=== PATIENT | female | born 1940 | race Caucasian/White ===

== ENCOUNTER 2016-10-14 23:21 | Observation (INO) | payer MEDICARE, OTHER ==
[~2016-10-14] VITALS: Ht 157.5 cm; Wt 52.7 kg
[~2016-10-14 23:21] MED LIST: ATEN50TA PO; FLUOXETINE; HYZAAR; LEVO50TA74 PO; LORA-444 PO; LORA0.5T PO; LOSA1TAB19 PO; METF1000 PO; PRILOSEC; ROSU20TA PO; SITA100T8 PO; TRAM-40 PO; ZOLP10TA5 PO
[2016-10-14] MEDS ORDERED: BELLADONNA/PHENOBARBITAL TAB PO STA (23:37)
[2016-10-14] MEDS ORDERED: SOD CHLORIDE 0.9% 1,000 ML IV STA (23:37)
[2016-10-14] MEDS ORDERED: ONDANSETRON 4 MG INJ IV STA (23:37)
[2016-10-14] MEDS ORDERED: LIDOCAINE/MYLANTA 40 ML BTL PO STA (23:37)
--- NOTE | 2016-10-14 23:41 | ERA ---
ER Documentation Chief Complaint Date/Time DATE: 10/14/16 TIME: 23:30 Chief Complaint mid scales non-radiating sharp 6/10 chest pain 20min prior to RA HPI 75-year-old woman presents with dull chest pain 1 day and an episode of vomiting while sitting on the couch today at home. Patient states chest discomfort lasted for about 30 minutes and improved with aspirin and nitroglycerin administered by EMS. She denies shortness of breath, denies chest pain at this time, no cough, no fevers or chills, no diarrhea. Patient denies abdominal pain. Patient was transported here by EMS without further complications. ROS All systems reviewed and are negative except as per history of present illness. Medications Home Meds Reported Medications Losartan-Hydrochlorothiazide (Losartan-HCTZ) 50-12.5 Mg Tab, 1 TAB PO DAILY, TAB 11/17/15 Rosuvastatin Calcium* (Crestor*) 20 Mg Tablet, 20 MG PO QHS, #30 TAB 11/17/15 Sitagliptin* (Januvia*) 100 Mg Tablet, 100 MG PO DAILY, #30 TAB 11/17/15 Metformin Hcl* (Metformin Hcl*) 1,000 Mg Tablet, 1000 MG PO WITH BREAKFAST DINNE , #60 TAB 11/17/15 Lorazepam* (Ativan*) 2 Mg Tablet, 2 MG PO HS Y for ANXIETY, #30 TAB 11/17/15 Levothyroxine Sodium* (Levothyroxine Sodium*) 50 Mcg Tablet, 50 MCG PO BEFORE BREAKFAST, #30 TAB 11/17/15 Tramadol Hcl* (Ultram*) 50 Mg Tablet, 50 MG PO DAILY Y for PAIN, TAB 11/17/15 Atenolol* (Atenolol*) 50 Mg Tablet, 25 MG PO DAILY, #30 TAB 11/17/15 Zolpidem Tartrate* (Zolpidem Tartrate*) 10 Mg Tablet, 10 MG PO QHS Y for INSOMNIA, #30 TAB 11/17/15 Allergies Allergies: Coded Allergies: ibuprofen (Verified Adverse Reaction, Unknown, "SHE GETS CRAZY", 11/17/15) PMhx/Soc diabetes mellitus, hypertension, anxiety, insomnia, dyslipidemia, hypothyroidism and history of meningioma History of Surgery: Yes (Right hip replacement, appendectomy) Anesthesia Reaction: No Hx Neurological Disorder: Yes (Syncope, possible seizures) Hx Respiratory Disorders: Yes (chronic cough) Hx Cardiac Disorders: Yes (HTN, Tachycardia) Hx Psychiatric Problems: Yes (Depression, anxiety, ) Hx Miscellaneous Medical Probl: Yes (High cholesterol) Hx Alcohol Use: No Hx Substance Use: No Hx Tobacco Use: No Physical Exam Vitals Vital Signs Date Time Temp Pulse Resp B/P Pulse Ox O2 Delivery O2 Flow Rate FiO2 10/14/16 23:35 65 11 97/56 94 Nasal Cannula 2.0 10/14/16 23:28 97.8 77 20 97/50 97 Physical Exam GENERAL: Well-developed, well-nourished, well-hydrated, in no apparent distress , looks nontoxic in appearance, afebrile HEENT: Moist mucous membranes, pink conjunctiva, no cervical spine tenderness or step-off deformities, no goiter, no jaundice or icterus, extraocular movements intact without pain. No submandibular induration, and no pharyngeal erythema NEURO: Alert and oriented 3, cranial nerves II through XII intact bilaterally, pupils equal round reactive to light, no focal deficits or facial asymmetry, sensation intact distally Strength 5/5 in upper and lower extremities bilaterally CARDIAC: Regular rate and rhythm, no murmurs rubs or gallops LUNGS: Clear bilaterally no wheezing crackles or stridor ABDOMEN: Soft nontender, no guarding, no rigidity, no rebound, no psoas sign no obturator sign. Normoactive bowel sounds SKIN: Warm and dry to touch, no abrasions, contusions, or hematomas, no lacerations, no ecchymosis, no target lesions, and without ulcers EXTREMITIES: No clubbing cyanosis or edema, calves are bilaterally symmetrical, no Homans sign, no popliteal cord sign. Distal pulses equal and bilateral PSYCH: Normal affect without agitation or irritability Result Diagram: 10/14/16 0000 10/14/16 0000 Results 24 hrs Laboratory Tests Test 10/14/16 00:00 10/15/16 00:30 White Blood Count 5.710^3/ul Red Blood Count 3.7010^6/ul Hemoglobin 10.9g/dl Hematocrit 33.5% Mean Corpuscular Volume 90.5fl Mean Corpuscular Hemoglobin 29.5pg Mean Corpuscular Hemoglobin Concent 32.5g/dl Red Cell Distribution Width 13.0% Platelet Count 58021^3/UL Mean Platelet Volume 10.2fl Neutrophils % 29.0% Lymphocytes % 62.1% Monocytes % 8.4% Eosinophils % 0.0% Basophils % 0.3% Nucleated Red Blood Cells % 0.0/100WBC Neutrophils # (Manual) 210^3/ul Lymphocytes # 3.610^3/ul Monocytes # 0.510^3/ul Eosinophils # 0.010^3/ul Basophils # 0.010^3/ul Nucleated Red Blood Cells # 0.010^3/ul Sodium Level 137mmol/L Potassium Level 3.9mmol/L Chloride Level 95mmol/L Carbon Dioxide Level 27mmol/L Anion Gap 19 Blood Urea Nitrogen 14mg/dl Creatinine 0.76mg/dl Glucose Level 102mg/dl Calcium Level 9.3mg/dl Total Bilirubin 0.0mg/dl Direct Bilirubin 0.00mg/dl Indirect Bilirubin 0.0mg/dl Aspartate Amino Transf (AST/SGOT) 25IU/L Alanine Aminotransferase (ALT/SGPT) 29IU/L Alkaline Phosphatase 55IU/L Troponin I < 0.012ng/ml Total Protein 6.5g/dl Albumin 4.2g/dl Globulin 2.30g/dl Albumin/Globulin Ratio 1.82 Lipase 77U/L Urine Color YELLOW Urine Clarity CLEAR Urine pH 6.0 Urine Specific [place] 1.013 Urine Ketones NEGATIVEmg/dL Urine Nitrite NEGATIVEmg/dL Urine Bilirubin NEGATIVEmg/dL Urine Urobilinogen NEGATIVEmg/dL Urine Leukocyte Esterase NEGATIVELeu/ul Urine Microscopic RBC 2/HPF Urine Microscopic WBC 1/HPF Urine Hemoglobin NEGATIVEmg/dL Urine Glucose NEGATIVEmg/dL Urine Total Protein 1+mg/dl Current Medications Medications (Trade) Dose Ordered Sig/[place] Route PRN Reason Start Time Stop Time Status Last Admin Dose Admin Sodium Chloride (NS) 1,000 ml @ 1,000 mls/hr Q1H STAT IV 10/14/16 23:37 10/15/16 00:36 DC 10/15/16 00:16 Ondansetron HCl (Zofran Inj) 4 mg ONCE STAT IV 10/14/16 23:37 10/14/16 23:38 DC 10/15/16 00:15 Miscellaneous Medication (Gi Cocktail (2)) 40 ml ONCE STAT PO 10/14/16 23:37 10/14/16 23:39 DC 10/15/16 00:15 Belladonna/ Phenobarbital () 2 tab ONCE STAT PO 10/14/16 23:37 10/14/16 23:39 DC 10/15/16 00:15 Procedures/MDM IV line was established patient was placed on quality assurance monitor final rhythm strip revealed a sinus rhythm at about 80 bpm with upright P and T waves. Patient was afebrile. EKG performed, read by me: 63 bpm, normal sinus rhythm, normal axis, inferolateral T-wave inversions, narrow QRS complex, with good R-wave progression in precordial leads. One AP view of the chest performed, read by me reveals no acute infiltrates, normal mediastinum, sharp costophrenic and cardiac borders, no air under the diaphragm. Otherwise unremarkable chest x-ray. CBC and electrolytes are normal, liver function tests are normal, troponin was negative. I administered 1 L normal saline intravenously, Zofran 4 mg IV, GI cocktail 50 cc p.o. Patient already received aspirin and nitroglycerin. Patient will be admitted to telemetry setting for continued medical management cardiology consultation. Departure Diagnosis: Primary Impression: Chest pain Qualified Code: R07.9 - Chest pain, unspecified type Condition: MAG Justice MD Oct 14, 2016 23:31
[2016-10-15] VITALS (11 sets, daily range): BP systolic 96–111; BP diastolic 49–56; PULSE 51–60; RESP 16–20; Ht 157.5 cm; Wt 52.7 kg
--- NOTE | 2016-10-15 00:38 | RADRPT ---
PROCEDURE: XR Chest. CLINICAL INDICATION: Abdominal pain TECHNIQUE: AP Portable chest. COMPARISON: 11/16/2015 FINDINGS: There is mild cardiomegaly. The lungs are clear. The osseous structures are unremarkable. There is no free air under the diaphragm, assuming this is an upright view. IMPRESSION: No acute findings. RPTAT: HIKT .Eddie Hayward MD, MD Date Time Electronically viewed and signed by .Eddie Hayward MD, MD on 10/15/2016 00:37 .T/
[2016-10-15 00:53] LABS: ALANINE AMINOTRANSFERASE 29 IU/L (13-69); ALBUMIN 4.2 g/dl (3.3-4.9); ALBUMIN/GLOBULIN RATIO 1.82; ALKALINE PHOSPHATASE 55 IU/L (42-121); ANION GAP 19 (8-16); ASPARTATE AMINO TRANSFERASE 25 IU/L (15-46); BLOOD UREA NITROGEN 14 mg/dl (7-20); CALCIUM 9.3 mg/dl (8.4-10.2); CARBON DIOXIDE 27 mmol/L (21-31); CHLORIDE 95 mmol/L (97-110); CREATININE 0.76 mg/dl (0.44-1.00); GLUCOSE 102 mg/dl (70-220); POTASSIUM 3.9 mmol/L (3.5-5.1); SODIUM 137 mmol/L (135-144); TOTAL PROTEIN 6.5 g/dl (6.1-8.1)
[2016-10-15 00:54] LABS: BASOPHILS % 0.3 % (0.0-2.0); HEMATOCRIT 33.5 % (37.0-47.0); HEMOGLOBIN 10.9 g/dl (12.0-16.0); LYMPHOCYTES # 3.6 10^3/ul (0.8-2.9); LYMPHOCYTES % 62.1 % (15.0-51.0); MEAN CORPUSCULAR HEMOGLOBIN 29.5 pg (29.0-33.0); MEAN CORPUSCULAR HGB CONC 32.5 g/dl (32.0-37.0); MEAN CORPUSCULAR VOLUME 90.5 fl (82.0-101.0); MEAN PLATELET VOLUME 10.2 fl (7.4-10.4); MONOCYTE # 0.5 10^3/ul (0.3-0.9); MONOCYTES % 8.4 % (0.0-11.0); PLATELET COUNT 242 10^3/UL (140-415); WHITE BLOOD COUNT 5.7 10^3/ul (4.8-10.8)
[2016-10-15 01:03] LABS: TROPONIN-I < 0.012 ng/ml (0.00-0.12)
[2016-10-15 01:45] LABS: ADD UMIC YES; UR ASCORBIC ACID NEGATIVE (NEGATIVE); UR BILIRUBIN (Dip) NEGATIVE (NEGATIVE); UR BLOOD (Dip) NEGATIVE (NEGATIVE); UR CLARITY CLEAR (CLEAR); UR COLOR YELLOW (YELLOW); UR GLUCOSE (Dip) NEGATIVE (NEGATIVE); UR KETONES (Dip) NEGATIVE (NEGATIVE); UR LEUKOCYTE ESTERASE (Dip) NEGATIVE Leu/ul (NEGATIVE); UR NITRITE (Dip) NEGATIVE (NEGATIVE); UR RBC 2 /HPF (0-5); UR SPECIFIC GRAVITY (Dip) 1.013 (1.003-1.030); UR TOTAL PROTEIN (Dip) 1+ mg/dl (NEGATIVE); UR UROBILINOGEN (Dip) NEGATIVE (NEGATIVE)
[2016-10-15] MEDS ORDERED: LORAZEPAM 2 MG INJ IM ONE (04:27)
[2016-10-15] MEDS ORDERED: ONDANSETRON 4 MG INJ IV PRN (04:30)
[2016-10-15] MEDS ORDERED: NITROGLYCERIN (SL) 0.4 MG TAB SL PRN (04:30)
[2016-10-15] MEDS ORDERED: NACL 0.9% 3 ML SYG IV SCH (04:30)
[2016-10-15] MEDS ORDERED: morphine 2 MG INJ IV PRN (04:30)
[2016-10-15] MEDS ORDERED: ACETAMINOPHEN 325 MG TAB PO PRN (04:30)
[2016-10-15] MEDS ORDERED: LORAZEPAM 0.5 MG TAB PO PRN (04:30)
[2016-10-15] MEDS ORDERED: ALBUTEROL/IPRATROPIUM (NEB) 3 ML AMP HHN PRN (04:30)
[2016-10-15] MEDS ORDERED: LORAZEPAM 2 MG INJ IV ONE (04:35)
[2016-10-15] MEDS ORDERED: GLUCOSE GEL 15 GRAM TUBE BUCCAL PRN (05:00)
[2016-10-15] MEDS ORDERED: DEXTROSE 50% 50 ML SYRINGE IV PRN ×2 (05:00)
[2016-10-15] MEDS ORDERED: GLUCOSE GEL 15 GRAM TUBE PO PRN ×2 (05:00)
[2016-10-15] MEDS ORDERED: GLUCAGON 1 MG INJ IM PRN (05:00)
[2016-10-15] MEDS: ZOLPIDEM 5 MG TAB PO PRN ×4 (05:04→22:21)
--- NOTE | 2016-10-15 07:11 | HP ---
Date/Time of Note Date/Time of Note DATE: 10/15/16 TIME: 07:04 Assessment/Plan VTE Prophylaxis VTE Prophylaxis Intervention: heparin Assessment/Plan Assessment/Plan 1. Chest pain and lightheadedness: Rule out ACS -Continue telemetry monitoring -Trend troponin -2D echo and cardiology consult -Supplemental oxygen, aspirin, beta-chris, as needed nitro and morphine 2. Diabetes -Check A1c -Insulin while in-house 3. Hypothyroidism -Check TSH -Continue Synthroid 4. History of dyslipidemia -Continue home med 5. History of anxiety -Patient currently looks comfortable and denied feeling anxious -Continue home meds HPI/ROS Admit Date/Time Admit Date/Time Oct 15, 2016 at 01:17 Hx of Present Illness This is a 75-year-old female with a history of diabetes, hypertension, dyslipidemia, anxiety, hypothyroidism and meningioma who presented to the emergency department complaining of chest pain and lightheadedness. ER notes also states that patient was complaining of vomiting but she denied. His first with chest pain is concerned, it is located in the mid chest with no radiation, associated with lightheadedness and occurred while she was sitting. Chest pain almost relieved with sublingual nitro given by EMS. Currently she is chest pain -free and only complaining of mild lightheadedness. She denied shortness of breath, nausea, vomiting, palpitation, abdominal pain, headache or urinary symptoms. She has a history of anxiety but she denies feeling anxious or being under stress lately. When she presented to the ER, vitals were stable. Initial heart rate was 77 but later on been in the 50s for the most part. Labs shows hemoglobin of 10.9 otherwise rest of basic labs were within acceptable range. Chest x-ray with no acute findings. . PMH/Family/Social Past Medical History Medical History: diabetes, high cholesterol, hypertension, hypothyroid, other ( Anxiety) Social History Alcohol Use: none Smoking Status: Never smoker Drug Use: none Exam/Review of Systems Vital Signs Vitals Vital Signs Date Time Temp Pulse Resp B/P Pulse Ox O2 Delivery O2 Flow Rate FiO2 10/15/16 04:04 55 10/15/16 03:30 97.8 18 111/54 97 Room Air 10/15/16 02:18 2.0 Labs Result Diagram: 10/14/16 0000 10/14/16 0000 Medications Medications Current Medications Lorazepam (Ativan) 0.5 mg Q8H PRN PO ANXIETY; Start 10/15/16 at 04:30 Ondansetron HCl (Zofran Inj) 4 mg Q6H PRN IV NAUSEA AND/OR VOMITING; Start at 04:30 Nitroglycerin (Nitroglycerin (Sl Tab) 0.4 Mg) 1 tab Q5M PRN SL CHEST PAIN; Start 10/15/16 at 04:30 Acetaminophen (Tylenol Tab) 650 mg Q6H PRN PO PAIN LEVEL 1-3 OR FEVER; Start at 04:30 Morphine Sulfate (morphine) 2 mg Q4H PRN IV PAIN LEVEL 7-10; Start 10/15/16 at 04:30 Enoxaparin Sodium (Lovenox) 40 mg DAILY SC ; Start 10/15/16 at 09:00 Atenolol (Tenormin) 25 mg DAILY PO ; Start 10/15/16 at 09:00 Atorvastatin Calcium (Lipitor) 80 mg QHS PO ; Start 10/15/16 at 21:00 Linagliptin (Tradjenta) 5 mg DAILY PO ; Start 10/15/16 at 09:00 Diagnostic Test (Pha) (Accu-Chek) 1 ea 02 XX ; Start 10/16/16 at 02:00 Miscellaneous Information 1 ea NOTE XX ; Start 10/15/16 at 05:00 Glucose (Glutose) 15 gm Q15M PRN PO DECREASED GLUCOSE; Start 10/15/16 at 05:00 Glucose (Glutose) 22.5 gm Q15M PRN PO DECREASED GLUCOSE; Start 10/15/16 at 05: 00 Dextrose (D50w Syringe) 25 ml Q15M PRN IV DECREASED GLUCOSE; Start 10/15/16 at 05:00 Dextrose (D50w Syringe) 50 ml Q15M PRN IV DECREASED GLUCOSE; Start 10/15/16 at 05:00 Glucagon (Glucagen) 1 mg Q15M PRN IM DECREASED GLUCOSE; Start 10/15/16 at 05:00 Glucose (Glutose) 15 gm Q15M PRN BUCCAL DECREASED GLUCOSE; Start 10/15/16 at 05 :00 AMITA TRIVEDI MD Oct 15, 2016 07:10
[2016-10-15 07:37] LABS: BASOPHILS % 0.3 % (0.0-2.0); EOSINOPHILS % 0.2 % (0.0-7.0); HEMATOCRIT 31.2 % (37.0-47.0); HEMOGLOBIN 10.2 g/dl (12.0-16.0); LYMPHOCYTES % 29.5 % (15.0-51.0); MEAN CORPUSCULAR HEMOGLOBIN 29.6 pg (29.0-33.0); MEAN CORPUSCULAR HGB CONC 32.7 g/dl (32.0-37.0); MEAN CORPUSCULAR VOLUME 90.4 fl (82.0-101.0); MEAN PLATELET VOLUME 10.4 fl (7.4-10.4); MONOCYTE # 0.5 10^3/ul (0.3-0.9); MONOCYTES % 6.8 % (0.0-11.0); NEUTROPHILS % 62.9 % (39.0-77.0); PLATELET COUNT 207 10^3/UL (140-415); RED BLOOD COUNT 3.45 10^6/ul (4.20-5.40); WHITE BLOOD COUNT 6.6 10^3/ul (4.8-10.8)
[2016-10-15 08:02] LABS: ALBUMIN 3.5 g/dl (3.3-4.9); ALBUMIN/GLOBULIN RATIO 1.59; BILIRUBIN,INDIRECT 0.1 mg/dl (0-1.1); BILIRUBIN,TOTAL 0.1 mg/dl (0.2-1.3); CALCIUM 8.6 mg/dl (8.4-10.2); CREATININE 0.66 mg/dl (0.44-1.00); POTASSIUM 4.3 mmol/L (3.5-5.1); TOTAL PROTEIN 5.7 g/dl (6.1-8.1)
[2016-10-15 08:30] LABS: THYROID STIMULATING HORMONE 2.45 MIU/L (0.465-4.680)
[2016-10-15] MEDS: LINAGLIPTIN 5 MG TABLET PO SCH (08:55)
[2016-10-15] MEDS: LEVOTHYROXINE 50 MCG TAB PO SCH (08:55)
[2016-10-15] MEDS: metFORMIN 500 MG TAB PO SCH ×2 (08:57→17:55)
[2016-10-15] MEDS ORDERED: ENOXAPARIN 40 MG/0.4 ML SYG SC SCH (09:00)
[2016-10-15] MEDS: ATENOLOL 25 MG TAB PO SCH (09:04)
[2016-10-15] MEDS: INSULIN ASPART [NOVOLOG] 3 ML PEN SC SCH ×4 (09:07→21:00)
--- NOTE | 2016-10-15 10:42 | PN ---
Date/Time of Note Date/Time of Note DATE: 10/15/16 TIME: 10:40 Assessment/Plan VTE Prophylaxis VTE Prophylaxis Intervention: LMWH Lines/Catheters IV Catheter Type (from Nrs): Saline Lock Assessment/Plan Chief Complaint/Hosp Course Assessment/Plan: 75-year-old female presents with 1. Chest pain and lightheadedness: Rule out ACS -Continue telemetry monitoring -Trend troponin -Follow-up 2D echo and cardiology consult accommodation -Supplemental oxygen, aspirin, beta-chris, as needed nitro and morphine 2. Diabetes -Follow-up A1c -Continue insulin while in-house 3. Hypothyroidism -Follow-up TSH -Continue Synthroid 4. History of dyslipidemia -Continue home med 5. History of anxiety: Patient currently looks comfortable and denied feeling anxious -Continue home meds 6. Bradycardia: On admission heart rate was 77, now it is been in the low 50 range. -Again, cardiology consult is pending, monitor on telemetry for now. Problems: Subjective 24 Hr Interval Summary Free Text/Dictation Patient denies any present chest pain. Asking when she can go home. Exam/Review of Systems Vital Signs Vitals Vital Signs Date Time Temp Pulse Resp B/P Pulse Ox O2 Delivery O2 Flow Rate FiO2 10/15/16 08:37 58 10/15/16 08:01 98.7 17 98/49 95 10/15/16 03:30 Room Air 10/15/16 02:18 2.0 Exam GENERAL: Well-developed, well-nourished, well-hydrated, in no apparent distress , looks nontoxic in appearance, afebrile HEENT: Moist mucous membranes, pink conjunctiva, no cervical spine tenderness or step-off deformities, no goiter, no jaundice or icterus, extraocular movements intact without pain. No submandibular induration, and no pharyngeal erythema NEURO: Alert and oriented 3, cranial nerves II through XII intact bilaterally, pupils equal round reactive to light, no focal deficits or facial asymmetry, sensation intact distally Strength 5/5 in upper and lower extremities bilaterally CARDIAC: Regular rate and rhythm, no murmurs rubs or gallops LUNGS: Clear bilaterally no wheezing crackles or stridor ABDOMEN: Soft nontender, no guarding, no rigidity, no rebound, no psoas sign no obturator sign. Normoactive bowel sounds SKIN: Warm and dry to touch, no abrasions, contusions, or hematomas, no lacerations, no ecchymosis, no target lesions, and without ulcers EXTREMITIES: No clubbing cyanosis or edema, calves are bilaterally symmetrical, no Homans sign, no popliteal cord sign. Distal pulses equal and bilateral PSYCH: Normal affect without agitation or irritability Results Result Diagram: 10/15/16 0639 10/15/16 0639 Results 24 hrs Laboratory Tests Test 10/15/16 00:30 10/15/16 06:39 10/15/16 09:07 Urine Color YELLOW Urine Clarity CLEAR Urine pH 6.0 Urine Specific [place] 1.013 Urine Ketones NEGATIVE Urine Nitrite NEGATIVE Urine Bilirubin NEGATIVE Urine Urobilinogen NEGATIVE Urine Leukocyte Esterase NEGATIVE Urine Microscopic RBC 2 Urine Microscopic WBC 1 Urine Hemoglobin NEGATIVE Urine Glucose NEGATIVE Urine Total Protein 1+ H White Blood Count 6.6 Red Blood Count 3.45 L Hemoglobin 10.2 L Hematocrit 31.2 L Mean Corpuscular Volume 90.4 Mean Corpuscular Hemoglobin 29.6 Mean Corpuscular Hemoglobin Concent 32.7 Red Cell Distribution Width 13.0 Platelet Count 207 Mean Platelet Volume 10.4 Neutrophils % 62.9 Lymphocytes % 29.5 Monocytes % 6.8 Eosinophils % 0.2 Basophils % 0.3 Nucleated Red Blood Cells % 0.0 Neutrophils # (Manual) 4 Lymphocytes # 2.0 Monocytes # 0.5 Eosinophils # 0.0 Basophils # 0.0 Nucleated Red Blood Cells # 0.0 Sodium Level 137 Potassium Level 4.3 Chloride Level 99 Carbon Dioxide Level 25 Anion Gap 17 H Blood Urea Nitrogen 13 Creatinine 0.66 Glucose Level 77 Hemoglobin A1c 5.8 Calcium Level 8.6 Total Bilirubin 0.1 L Direct Bilirubin 0.00 Indirect Bilirubin 0.1 Aspartate Amino Transf (AST/SGOT) 32 Alanine Aminotransferase (ALT/SGPT) 30 Alkaline Phosphatase 48 Total Protein 5.7 L Albumin 3.5 Globulin 2.20 Albumin/Globulin Ratio 1.59 Triglycerides Level 50 Cholesterol Level 195 LDL Cholesterol, Calculated 120 HDL Cholesterol 65 Cholesterol/HDL Ratio 3.0 Thyroid Stimulating Hormone (TSH) 2.450 Bedside Glucose 89 Medications Medications Current Medications Lorazepam (Ativan) 0.5 mg Q8H PRN PO ANXIETY; Start 10/15/16 at 04:30 Ondansetron HCl (Zofran Inj) 4 mg Q6H PRN IV NAUSEA AND/OR VOMITING; Start at 04:30 Nitroglycerin (Nitroglycerin (Sl Tab) 0.4 Mg) 1 tab Q5M PRN SL CHEST PAIN; Start 10/15/16 at 04:30 Acetaminophen (Tylenol Tab) 650 mg Q6H PRN PO PAIN LEVEL 1-3 OR FEVER; Start at 04:30 Morphine Sulfate (morphine) 2 mg Q4H PRN IV PAIN LEVEL 7-10; Start 10/15/16 at 04:30 Enoxaparin Sodium (Lovenox) 40 mg DAILY SC Last administered on 10/15/16 09:07 ; Admin Dose 40 MG; Start 10/15/16 at 09:00 Atenolol (Tenormin) 25 mg DAILY PO Last administered on 10/15/16 09:04; Admin Dose 25 MG; Start 10/15/16 at 09:00 Atorvastatin Calcium (Lipitor) 80 mg QHS PO ; Start 10/15/16 at 21:00 Linagliptin (Tradjenta) 5 mg DAILY PO Last administered on 10/15/16 08:55; Admin Dose 5 MG; Start 10/15/16 at 09:00 Diagnostic Test (Pha) (Accu-Chek) 1 ea 02 XX ; Start 10/16/16 at 02:00 Miscellaneous Information 1 ea NOTE XX ; Start 10/15/16 at 05:00 Glucose (Glutose) 15 gm Q15M PRN PO DECREASED GLUCOSE; Start 10/15/16 at 05:00 Glucose (Glutose) 22.5 gm Q15M PRN PO DECREASED GLUCOSE; Start 10/15/16 at 05: 00 Dextrose (D50w Syringe) 25 ml Q15M PRN IV DECREASED GLUCOSE; Start 10/15/16 at 05:00 Dextrose (D50w Syringe) 50 ml Q15M PRN IV DECREASED GLUCOSE; Start 10/15/16 at 05:00 Glucagon (Glucagen) 1 mg Q15M PRN IM DECREASED GLUCOSE; Start 10/15/16 at 05:00 Glucose (Glutose) 15 gm Q15M PRN BUCCAL DECREASED GLUCOSE; Start 10/15/16 at 05 :00 INESSA IGLESIAS Oct 15, 2016 10:42
--- NOTE | 2016-10-15 12:06 | CONS ---
DATE OF ADMISSION: 10/15/2016 DATE OF CONSULTATION: 10/15/2016 REASON FOR CONSULTATION: Chest pain. HISTORY OF PRESENT ILLNESS: Mrs. Cristobal is a 75-year-old woman with history of diabetes and hypertension. She presents to the Emergency Department with a complaint of stabbing, left-sided chest pain coming and going over the course of several hours. She also felt sensation of palpitations associated with it and lightheadedness. She experienced these symptoms at rest, were not notably worsened with exertion. She reports that at baseline she can walk without difficulty and no chest pain. She has been noted to be bradycardic on telemetry with heart rate in the 50s. PAST MEDICAL HISTORY: Hypertension. Diabetes. Hypercholesterolemia. Hypothyroidism. PHYSICAL EXAMINATION: GENERAL APPEARANCE: She is in no distress. She is comfortable with no chest pain. VITAL SIGNS: Temperature 98.7, pulse ranging from 50 to 60. Blood pressure 98/49. NECK: She has no jugular venous distention. LUNGS: Clear. HEART: Regular rate and rhythm. No murmurs are appreciated. ABDOMEN: Soft, nontender, nondistended. EXTREMITIES: No edema. LABORATORY: The lab results are reviewed. Hemoglobin 31.2, white count 6.6. Troponin x1 0.012. Basic metabolic panel otherwise unremarkable. Chest x-ray shows no acute findings. EKG shows sinus rhythm with no ST changes. MEDICATION: Medications reviewed. 1. Insulin. 2. Metformin. 3. Lovenox. 4. Atenolol. ASSESSMENT:: 1. Atypical chest pain, given its fleeting sharp nature at rest. No EKG findings. 2. Echocardiogram ordered. Would follow a second troponin. If second troponin is negative and echocardiogram not significantly abnormal, would not need further inpatient evaluation for these symptoms. 3. The patient does report palpitations and it is possible that these symptoms represent a transient arrhythmia. She remains on telemetry monitoring. 4. Given her bradycardia, would avoid increasing atenolol which she is currently taking at 25 mg. Thank you very much for this consultation. Dictated By: Wesley Spann MD /maynor/chandrika /Document#: [id number]
[2016-10-15] MEDS ORDERED: ATORVASTATIN 80 MG TAB PO SCH (21:00)
[2016-10-16] VITALS (8 sets, daily range): BP systolic 96–128; BP diastolic 42–59; PULSE 55–86; RESP 18–19
[2016-10-16] MEDS ORDERED: ACCU-CHEK XX SCH (02:00)
[2016-10-16] MEDS: LEVOTHYROXINE 50 MCG TAB PO SCH (06:45)
[2016-10-16 07:02] LABS: BASOPHILS % 0.5 % (0.0-2.0); EOSINOPHILS % 0.2 % (0.0-7.0); HEMATOCRIT 32.6 % (37.0-47.0); HEMOGLOBIN 10.6 g/dl (12.0-16.0); LYMPHOCYTES # 1.7 10^3/ul (0.8-2.9); MEAN CORPUSCULAR HEMOGLOBIN 29.4 pg (29.0-33.0); MEAN CORPUSCULAR HGB CONC 32.5 g/dl (32.0-37.0); MEAN CORPUSCULAR VOLUME 90.6 fl (82.0-101.0); MEAN PLATELET VOLUME 10.4 fl (7.4-10.4); MONOCYTE # 0.3 10^3/ul (0.3-0.9); NEUTROPHILS % 51.1 % (39.0-77.0); PLATELET COUNT 203 10^3/UL (140-415); RED CELL DISTRIBUTION WIDTH 12.8 % (11.5-14.5); WHITE BLOOD COUNT 4.1 10^3/ul (4.8-10.8)
[2016-10-16 07:39] LABS: CALCIUM 9.1 mg/dl (8.4-10.2); CREATININE 0.77 mg/dl (0.44-1.00); MAGNESIUM 1.8 mg/dl (1.7-2.5); PHOSPHORUS 3.8 mg/dl (2.5-4.9); POTASSIUM 4.5 mmol/L (3.5-5.1)
[2016-10-16] MEDS: INSULIN ASPART [NOVOLOG] 3 ML PEN SC SCH (07:55)
[2016-10-16] MEDS: metFORMIN 500 MG TAB PO SCH (07:55)
[2016-10-16] MEDS ORDERED: HEPARIN 25000 UNITS/250 ML 250 ML IV SCH (08:00)
[2016-10-16] MEDS ORDERED: HEPARIN 1000 UNITS/ML 10 ML INJ IV PRN (08:00)
[2016-10-16] MEDS ORDERED: HEPARIN 1000 UNITS/ML 10 ML INJ IV ONE (08:00)
--- NOTE | 2016-10-16 08:05 | PN ---
Date/Time of Note Date/Time of Note DATE: 10/16/16 TIME: 08:04 Assessment/Plan VTE Prophylaxis VTE Prophylaxis Intervention: SCD's Lines/Catheters IV Catheter Type (from Nrsg): Saline Lock Assessment/Plan Assessment/Plan Chest pain +trop DM HLP Bradycardia -continue cv meds -check trop #3 -possible cardiolyte vs cath depends on trop #3 -will review echo Subjective 24 Hr Interval Summary Free Text/Dictation The patient with no complaints Exam/Review of Systems Vital Signs Vitals Vital Signs Date Time Temp Pulse Resp B/P Pulse Ox O2 Delivery O2 Flow Rate FiO2 10/16/16 07:35 98.4 18 123/57 97 10/16/16 04:38 60 10/15/16 03:30 Room Air 10/15/16 02:18 2.0 Intake and Output 10/15/16 10/15/16 10/16/16 15:00 23:00 07:00 Intake Total 800 ml 300 ml Balance 800 ml 300 ml Results Result Diagram: 10/16/1614 10/16/16 0614 Results 24 hrs Laboratory Tests Test 10/15/16 09:07 10/15/16 12:24 10/15/16 18:01 10/15/16 21:10 Bedside Glucose 89 131 89 94 Test 10/16/16 06:14 White Blood Count 4.1 #L Red Blood Count 3.60 L Hemoglobin 10.6 L Hematocrit 32.6 L Mean Corpuscular Volume 90.6 Mean Corpuscular Hemoglobin 29.4 Mean Corpuscular Hemoglobin Concent 32.5 Red Cell Distribution Width 12.8 Platelet Count 203 Mean Platelet Volume 10.4 Neutrophils % 51.1 Lymphocytes % 40.0 Monocytes % 8.0 Eosinophils % 0.2 Basophils % 0.5 Nucleated Red Blood Cells % 0.0 Neutrophils # (Manual) 2 Lymphocytes # 1.7 Monocytes # 0.3 Eosinophils # 0.0 Basophils # 0.0 Nucleated Red Blood Cells # 0.0 Sodium Level 139 Potassium Level 4.5 Chloride Level 100 Carbon Dioxide Level 28 Anion Gap 16 Blood Urea Nitrogen 14 Creatinine 0.77 Glucose Level 70 Calcium Level 9.1 Phosphorus Level 3.8 Magnesium Level 1.8 Troponin I 0.332 *H Medications Medications Current Medications Lorazepam (Ativan) 0.5 mg Q8H PRN PO ANXIETY; Start 10/15/16 at 04:30 Ondansetron HCl (Zofran Inj) 4 mg Q6H PRN IV NAUSEA AND/OR VOMITING; Start at 04:30 Nitroglycerin (Nitroglycerin (Sl Tab) 0.4 Mg) 1 tab Q5M PRN SL CHEST PAIN; Start 10/15/16 at 04:30 Acetaminophen (Tylenol Tab) 650 mg Q6H PRN PO PAIN LEVEL 1-3 OR FEVER Last administered on 10/15/16 19:34; Admin Dose 650 MG; Start 10/15/16 at 04:30 Morphine Sulfate (morphine) 2 mg Q4H PRN IV PAIN LEVEL 7-10; Start 10/15/16 at 04:30 Enoxaparin Sodium (Lovenox) 40 mg DAILY SC Last administered on 10/15/16 09:07 ; Admin Dose 40 MG; Start 10/15/16 at 09:00 Atenolol (Tenormin) 25 mg DAILY PO Last administered on 10/15/16 09:04; Admin Dose 25 MG; Start 10/15/16 at 09:00 Atorvastatin Calcium (Lipitor) 80 mg QHS PO Last administered on 10/15/16 21: 11; Admin Dose 80 MG; Start 10/15/16 at 21:00 Linagliptin (Tradjenta) 5 mg DAILY PO Last administered on 10/15/16 08:55; Admin Dose 5 MG; Start 10/15/16 at 09:00 Diagnostic Test (Pha) (Accu-Chek) 1 ea 02 XX ; Start 10/16/16 at 02:00 Miscellaneous Information 1 ea NOTE XX ; Start 10/15/16 at 05:00 Glucose (Glutose) 15 gm Q15M PRN PO DECREASED GLUCOSE; Start 10/15/16 at 05:00 Glucose (Glutose) 22.5 gm Q15M PRN PO DECREASED GLUCOSE; Start 10/15/16 at 05: 00 Dextrose (D50w Syringe) 25 ml Q15M PRN IV DECREASED GLUCOSE; Start 10/15/16 at 05:00 Dextrose (D50w Syringe) 50 ml Q15M PRN IV DECREASED GLUCOSE; Start 10/15/16 at 05:00 Glucagon (Glucagen) 1 mg Q15M PRN IM DECREASED GLUCOSE; Start 10/15/16 at 05:00 Glucose (Glutose) 15 gm Q15M PRN BUCCAL DECREASED GLUCOSE; Start 10/15/16 at 05 :00 MADELINE LEBLANC MD Oct 16, 2016 08:05
--- NOTE | 2016-10-16 08:17 | RADRPT ---
Echocardiogram Report Patient Name: WENDI TAYLOR Gender: Female Date: 1940 Study Date: 15-Oct-2016 Speck Dyer: SHANTHI Location: I Ref. Physician: AMITA TRIVEDI Quality: Adequate Procedures: Transthoracic echocardiogram with complete 2D, M-Mode, and Doppler examination. Indications: Chest Pain. 2D/M Mode Doppler Measurement Value Normal Ranges Measurement Value Normal Ranges AoR Diam MM 3.0 cm AV Peak Matt 1.3 m/sec LVIDd 2D 3.8 3.5 - 5.6 cm AV Peak PG 6.0 mmHg LVIDs 2D 2.4 2.1 - 4.1 cm LVOT Peak Matt 0.7 m/sec FS 2D 37.2 % LVOT Peak PG 2.0 mmHg LVPWd 2D 0.9 0.6 - 1.1 cm MV E Peak Matt 0.8 m/sec IVSd 2D 1.0 0.6 - 1.1 cm MV A Peak Matt 0.9 m/sec IVS/LVPW 2D 1.1 MV E/A 0.9 EDV 2D 55.7 cm3 MV Decel Time 222 msec ESV 2D 13.8 cm3 MV E/A 0.9 LA Dimen 2D 3.7 2.3 - 4.0 cm TR Peak Matt 2.0 m/sec TR Peak PG 17.0 mmHg PV Peak Matt 0.8 m/sec PV Peak PG 2.0 mmHg RVSP 20.0 mmHg Findings Left Ventricle: Normal left ventricular systolic function. Normal left ventricular cavity size. Normal left ventricular wall thickness. Ejection fraction is visually estimated at 60 %. These segments of the LV are hypokinetic mid anterior segment and anteroseptum mid segment. Right Ventricle: Normal right ventricular size. Normal right ventricular systolic function. Left Atrium: The left atrium is normal in size. Right Atrium: The right atrium is normal in size. Atrial Septum: Normal atrial septum. Mitral Valve: Mild mitral annular calcification. Mild mitral valve regurgitation. Aortic Valve: Normal appearance of the aortic valve. No hemodynamically significant aortic stenosis by doppler. Tricuspid Valve: Normal appearance of the tricuspid valve. Estimated peak PA systolic pressure 20 mmHg. There is trace to mild tricuspid regurgitation. Pulmonic Valve: Normal pulmonic valve appearance. There is trace pulmonic regurgitation. Pericardium: Normal pericardium with no significant pericardial effusion. Aorta: Normal aortic root. IVC: Normal size and normal respiratory collapse consistent with normal right atrial pressure. Pulmonary Artery: Normal pulmonary artery size. Conclusions 1.Normal left ventricular systolic function. Normal left ventricular cavity size. Normal left ventricular wall thickness. Ejection fraction is visually estimated at 60 %. These segments of the LV are hypokinetic mid anterior segment and anteroseptum mid segment. 2.Mild mitral annular calcification. Mild mitral valve regurgitation. 3.Normal appearance of the aortic valve. No hemodynamically significant aortic stenosis by doppler. 4.Normal appearance of the tricuspid valve. Estimated peak PA systolic pressure 20 mmHg. There is trace to mild tricuspid regurgitation. 5.Normal size and normal respiratory collapse consistent with normal right atrial pressure. Electronically Signed By: Trevor Monsivais 16-Oct-2016 08:16:44 -0700 Patient Name: WENDI TAYLOR Study Date: 15-Oct-2016 [id number]
[2016-10-16] MEDS: ATENOLOL 25 MG TAB PO SCH (08:40)
[2016-10-16] MEDS: LINAGLIPTIN 5 MG TABLET PO SCH (08:48)
[2016-10-16] MEDS ORDERED: ASPIRIN 325 MG TAB PO SCH (09:00)
--- NOTE | 2016-10-16 11:50 | DS ---
Date/Time of Note Date/Time of Note DATE: 10/16/16 TIME: 11:48 Discharge Summary Admission/Discharge Info Admit Date/Time Oct 15, 2016 at 01:17 Discharge Date/Time Discharge Diagnosis chest pain Patient Condition: Guarded Consults cardiology Procedures TTE 8.20 Conclusions 1. Normal left ventricular systolic function. Normal left ventricular cavity size. Normal left ventricular wall thickness. Ejection fraction is visually estimated at 60 %. These segments of the LV are hypokinetic mid anterior segment and anteroseptum mid segment. 2. Mild mitral annular calcification. Mild mitral valve regurgitation. 3. Normal appearance of the aortic valve. No hemodynamically significant aortic stenosis by doppler. 4. Normal appearance of the tricuspid valve. Estimated peak PA systolic pressure 20 mmHg. There is trace to mild tricuspid regurgitation. 5. Normal size and normal respiratory collapse consistent with normal right atrial pressure. BMP - 48 HRS Test 10/15/16 12:24 10/15/16 18:01 10/15/16 21:10 10/16/16 06:14 Bedside Glucose 131mg/dL (70-220) 89mg/dL (70-220) 94mg/dL (70-220) Sodium Level 139mmol/L (135-144) Potassium Level 4.5mmol/L (3.5-5.1) Chloride Level 100mmol/L (97-110) Carbon Dioxide Level 28mmol/L (21-31) Anion Gap 16 (8-16) Blood Urea Nitrogen 14mg/dl (7-20) Creatinine 0.77mg/dl (0.44-1.00) Glucose Level 70mg/dl (70-220) Calcium Level 9.1mg/dl (8.4-10.2) Phosphorus Level 3.8mg/dl (2.5-4.9) Magnesium Level 1.8mg/dl (1.7-2.5) Troponin I 0.332ng/ml (0.00-0.12) *H Test 10/16/16 08:40 10/16/16 10:26 Bedside Glucose 82mg/dL (70-220) 85mg/dL (70-220) Hx of Present Illness This is a 75-year-old female with a history of diabetes, hypertension, dyslipidemia, anxiety, hypothyroidism and meningioma who presented to the emergency department complaining of chest pain and lightheadedness. ER notes also states that patient was complaining of vomiting but she denied. His first with chest pain is concerned, it is located in the mid chest with no radiation, associated with lightheadedness and occurred while she was sitting. Chest pain almost relieved with sublingual nitro given by EMS. Currently she is chest pain -free and only complaining of mild lightheadedness. She denied shortness of breath, nausea, vomiting, palpitation, abdominal pain, headache or urinary symptoms. She has a history of anxiety but she denies feeling anxious or being under stress lately. When she presented to the ER, vitals were stable. Initial heart rate was 77 but later on been in the 50s for the most part. Labs shows hemoglobin of 10.9 otherwise rest of basic labs were within acceptable range. Chest x-ray with no acute findings. . Hospital Course Pt presented with chest pain. First trop negative, second trop elevated concerning for NSTEMI. Given hypodynamic area seen on TTE, concern for coronary artery occlusion. Cardiac cath advised by cardiology service, however pt and son refused. 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 Patient and son continued to refuse further cardiac evaluation. Cards clinical documentation consultant notified. Also I left a message for patient's PCP and requested a call back. CHANGES FROM ADMIT MEDS: pt advised to start asa 81 mg daily. Home Meds Reported Medications Losartan-Hydrochlorothiazide (Losartan-HCTZ) 50-12.5 Mg Tab, 1 TAB PO DAILY, TAB 11/17/15 Rosuvastatin Calcium* (Crestor*) 20 Mg Tablet, 20 MG PO QHS, #30 TAB 11/17/15 Sitagliptin* (Januvia*) 100 Mg Tablet, 100 MG PO DAILY, #30 TAB 11/17/15 Metformin Hcl* (Metformin Hcl*) 1,000 Mg Tablet, 1000 MG PO WITH BREAKFAST DINNE , #60 TAB 11/17/15 Lorazepam* (Ativan*) 2 Mg Tablet, 2 MG PO HS Y for ANXIETY, #30 TAB 11/17/15 Levothyroxine Sodium* (Levothyroxine Sodium*) 50 Mcg Tablet, 50 MCG PO BEFORE BREAKFAST, #30 TAB 11/17/15 Tramadol Hcl* (Ultram*) 50 Mg Tablet, 50 MG PO DAILY Y for PAIN, TAB 11/17/15 Atenolol* (Atenolol*) 50 Mg Tablet, 25 MG PO DAILY, #30 TAB 11/17/15 Zolpidem Tartrate* (Zolpidem Tartrate*) 10 Mg Tablet, 10 MG PO QHS Y for INSOMNIA, #30 TAB 11/17/15 Follow-up Plan PCP and head miller within 3 days Primary Care Provider Narendra Alexander ([facility]) Time spent on discharge: > 30 minutes Pending Labs Laboratory Tests Test 10/15/16 12:24 10/15/16 18:01 10/15/16 21:10 10/16/16 06:14 Bedside Glucose 131mg/dL (70-220) 89mg/dL (70-220) 94mg/dL (70-220) White Blood Count 4.110^3/ul (4.8-10.8) Red Blood Count 3.6010^6/ul (4.20-5.40) Hemoglobin 10.6g/dl (12.0-16.0) Hematocrit 32.6% (37.0-47.0) Mean Corpuscular Volume 90.6fl (82.0-101.0) Mean Corpuscular Hemoglobin 29.4pg (29.0-33.0) Mean Corpuscular Hemoglobin Concent 32.5g/dl (32.0-37.0) Red Cell Distribution Width 12.8% (11.5-14.5) Platelet Count 84317^3/UL (140-415) Mean Platelet Volume 10.4fl (7.4-10.4) Neutrophils % 51.1% (39.0-77.0) Lymphocytes % 40.0% (15.0-51.0) Monocytes % 8.0% (0.0-11.0) Eosinophils % 0.2% (0.0-7.0) Basophils % 0.5% (0.0-2.0) Nucleated Red Blood Cells % 0.0/100WBC (0.0-0.0) Neutrophils # (Manual) 210^3/ul (1.7-7.5) Lymphocytes # 1.710^3/ul (0.8-2.9) Monocytes # 0.310^3/ul (0.3-0.9) Eosinophils # 0.010^3/ul (0.0-0.5) Basophils # 0.010^3/ul (0.0-0.1) Nucleated Red Blood Cells # 0.010^3/ul (0.0-0.0) Sodium Level 139mmol/L (135-144) Potassium Level 4.5mmol/L (3.5-5.1) Chloride Level 100mmol/L (97-110) Carbon Dioxide Level 28mmol/L (21-31) Anion Gap 16 (8-16) Blood Urea Nitrogen 14mg/dl (7-20) Creatinine 0.77mg/dl (0.44-1.00) Glucose Level 70mg/dl (70-220) Calcium Level 9.1mg/dl (8.4-10.2) Phosphorus Level 3.8mg/dl (2.5-4.9) Magnesium Level 1.8mg/dl (1.7-2.5) Troponin I 0.332ng/ml (0.00-0.12) Test 10/16/16 08:40 10/16/16 10:26 Bedside Glucose 82mg/dL (70-220) 85mg/dL (70-220) SOO LOVING MD Oct 16, 2016 11:50 SOO LOVING MD Oct 16, 2016 11:50
--- NOTE | 2016-10-16 11:58 | PDOCDIS ---
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 As we discussed in person, given your elevated heart blood test and the local area of weak muscle on your heart ultrasound, it's possible one of the big arteries in your heart is blocked. This can cause permanent heart damage and . SOO LOVING MD Oct 16, 2016 11:58
== END 2016-10-16 13:23 | disposition left against medical advice (07) ==
LOC: E/R 23:21 → INTOOBSV 10-15 01:17 → TEL 10-15 01:17
PROVIDERS: ADMIT Internal Medicine; ATTEND Internal Medicine
DX: R07.89 Other chest pain (principal); E78.00 Pure hypercholesterolemia, unspecified; I10 Essential (primary) hypertension; E11.9 Type 2 diabetes mellitus without complications; E78.5 Hyperlipidemia, unspecified; E03.9 Hypothyroidism, unspecified; F41.9 Anxiety disorder, unspecified; R00.1 Bradycardia, unspecified; Z88.6 Allergy status to analgesic agent; Z79.84 Long term (current) use of oral hypoglycemic drugs
CPT/HCPCS: 36415; 71010; 80048; 80053; 80061; 81001; 82962; 83036; 83690; 83735; 84100; 84443; 84484; 85025; 93005; 93306; 96374; 99285; G0378; J1650; J1815; J2405; J7030; J1644